=== PATIENT | female | born 1945 | race Caucasian/White ===

== ENCOUNTER → 2017-11-06 | Outpatient (CLI) | payer OTHER ==
[~2017-11-06] MED LIST: ASPIR 8181 MG PO; BEVESPI AEROS10.7 GM INH; COZAAR100 MG PO; MYRBETRIQ50 MG PO; NEURONTIN 300300 M1 PO; NORVASC5 MG PO; STIOLTO RESPIMAT4 GM INH; SYNTHROID125 MCG PO; XARELTO15 MG PO; ZOLOFT100 MG PO
== END ==
LOC: M.RAD 10:59
DX: M19.012 Primary osteoarthritis, left shoulder (principal); I10 Essential (primary) hypertension; E03.9 Hypothyroidism, unspecified